=== PATIENT | female | born 1995 | race African-American/Black ===

== ENCOUNTER 2020-04-19 16:50 | Inpatient (IN) | payer MEDICAID, SELFPAY ==
[~2020-04-19] VITALS: Ht 175.3 cm; Wt 95.3 kg
[2020-04-19] MEDS ORDERED: PRETAB PO (17:46)
[2020-04-19] MEDS ORDERED: MORPHINE SULFATE 5 MG/ML VIAL IVP PRN (17:50)
[2020-04-19] MEDS ORDERED: LACTATED RINGERS 1,000 ML IV SCH (17:50)
[2020-04-19] MEDS ORDERED: OXYTOCIN 20 UNITS in LACTATED RINGERS 1,000 ML IV SCH (17:50)
[2020-04-19] MEDS ORDERED: METHYLERGONOVINE 0.2 MG/ML AMP IM PRN (17:50)
[2020-04-19] MEDS ORDERED: ONDANSETRON 4 MG/2 ML VIAL IVP PRN (17:50)
[2020-04-19] MEDS ORDERED: CARBOPROST 250 MCG/ML AMP IM PRN (17:50)
[2020-04-19 18:18] LABS: APPEARANCE,URINE CLEAR (CLEAR); BILIRUBIN,URINE NEGATIVE (NEGATIVE); BLOOD, URINE NEGATIVE (NEGATIVE); COLOR,URINE YELLOW (YELLOW); LEUKOCYTE ESTERASE ,URINE TRACE (NEGATIVE); NITRITE, URINE NEGATIVE (NEGATIVE); UGLUCOSE NEGATIVE (NEGATIVE)
[2020-04-19 18:37] LABS: BASOPHILS # (AUTO) 0.1 K/uL (0.00-0.22); BASOPHILS % (AUTO) 0.6 % (0.0-2.0); EOSINOPHILS # (AUTO) 0.1 K/uL (0-0.4); EOSINOPHILS % (AUTO) 0.6 % (0.0-4.0); HEMATOCRIT 37.2 % (36-48); LYMPHOCYTES # (AUTO) 1.5 K/uL (2.5-16.5); LYMPHOCYTES % (AUTO) 13.1 % (20.5-51.1); MEAN CORPUSCULAR HEMOGLOBIN 23 pg (27-31); MEAN CORPUSCULAR HGB CONC 32 g/dL (33-37); MONOCYTES # (AUTO) 0.6 K/uL (0.8-1.0); MONOCYTES % (AUTO) 5.6 % (1.7-9.3); NEUTROPHILS # (AUTO) 8.9 K/uL (1.8-7.7); NEUTROPHILS % (AUTO) 80.1 % (42.2-75.2); PLATELET COUNT (AUTO) 303 K/uL (140-450); RED BLOOD CELL COUNT(AUTO) 5.17 MIL/uL (4.20-5.40); RED CELL DISTRIBUTION WIDTH 15.7 % (11.6-13.7); WHITE BLOOD COUNT (AUTO) 11.1 K/uL (4.8-10.8)
[2020-04-19 18:42] LABS: BARBITURATE, URINE NEGATIVE ng/ml (NEG <=200); BENZODIAZEPINE, URINE NEGATIVE ng/mL (NEG <=200); CANNABINOID, URINE NEGATIVE ng/mL (NEG <=50); COCAINE, URINE NEGATIVE ng/mL (NEG <=300); OPIATE, URINE NEGATIVE ng/mL (NEG <=2000); PHENCYCLIDINE SCREEN,URINE NEGATIVE ng/mL (NEG <=25)
[2020-04-19 18:49] LABS: RBC,URINE 0-5 /HPF (0-5)
[2020-04-19 19:04] LABS: ALBUMIN 2.9 g/dL (3.4-5.0); ANION GAP 14.7 (8-16); CARBON DIOXIDE 22.8 mmol/L (21-32); CREATININE 0.7 mg/dL (0.6-1.3); POTASSIUM 3.5 mmol/L (3.5-5.1); TOTAL BILIRUBIN 0.2 mg/dL (0.0-1.0)
[2020-04-19] MEDS ORDERED: MORPHINE SULFATE 10 MG/ML VIAL ONE (20:13)
[2020-04-19 20:19] VITALS: BP 110/70
[2020-04-19] MEDS ORDERED: ROPIVACAINE 0.2%/NS PREMIX 200 ML EPI ONE (22:31)
[2020-04-20] MEDS ORDERED: OXYTOCIN 20 UNITS/LR PREMIX 1,000 ML IV ONE (05:18)
[2020-04-20] MEDS ORDERED: LEVOTHYROXINE 0.025 MG TAB PO SCH (06:30)
--- NOTE | 2020-04-20 09:30 | NUR ---
PATIENT HAS BEEN SCREENED AND CATEGORIZED LOW NUTRITION RISK. PATIENT WILL BE SEEN WITHIN 7 DAYS OF ADMISSION. 04/26/[address]
[2020-04-20] MEDS ORDERED: SIMETHICONE 80 MG TAB.CHEW PO PRN (18:10)
[2020-04-20] MEDS ORDERED: METHYLERGONOVINE 0.2 MG/ML AMP IM PRN (18:10)
[2020-04-20] MEDS ORDERED: bisacodyL 5 MG TABEC PO PRN (18:10)
[2020-04-20] MEDS ORDERED: MEASLES, MUMPS, AND RUBELLA 1 VIAL SQVAC PRN (18:10)
[2020-04-20] MEDS ORDERED: IBUPROFEN 800 MG TAB PO PRN (18:10)
[2020-04-20] MEDS ORDERED: OXYTOCIN 10 UNITS/ML VIAL IM PRN (18:10)
[2020-04-20] MEDS ORDERED: DOCUSATE SODIUM 100 MG GELCAP PO PRN (18:10)
[2020-04-20] MEDS ORDERED: BENZOCAINE/MENTHOL 20%-0.5% 60 GM CAN TP PRN (18:10)
[2020-04-20] MEDS ORDERED: IBUPROFEN 600 MG TAB PO PRN (18:10)
[2020-04-20] MEDS ORDERED: METHYLERGONOVINE 0.2 MG TAB PO PRN (18:10)
[2020-04-21] MEDS ORDERED: MULTIVIT/MIN/CA/FE/FA 1 TAB PO SCH (09:00)
[2020-04-21] MEDS ORDERED: LEVO (20:57)
[2020-04-21] MEDS ORDERED: LEVO0.0211 PO (21:06)
== END 2020-04-21 22:20 | disposition home or self-care (01) | DRG 560 ==
LOC: MFCC 16:50
PROVIDERS: ADMIT Obstetrics & Gynecology; ATTEND Obstetrics & Gynecology
PROC: 10E0XZZ Delivery of Products of Conception, External Approach (ICD-10-PCS; principal; 2020-04-20)
PROC: 3E0R3BZ Introduction of Anesthetic Agent into Spinal Canal, Percutaneous Approach (ICD-10-PCS; 2020-04-20)
PROC: 00HU33Z Insertion of Infusion Device into Spinal Canal, Percutaneous Approach (ICD-10-PCS; 2020-04-20)
PROC: 10907ZC Drainage of Amniotic Fluid, Therapeutic from Products of Conception, Via Natural or Artificial Opening (ICD-10-PCS; 2020-04-20)
DX: O60.23X0 Term delivery with preterm labor, third trimester, not applicable or unspecified (principal); O99.284 Endocrine, nutritional and metabolic diseases complicating childbirth; Z37.0 Single live birth; Z3A.38 38 weeks gestation of pregnancy; Z20.828 Contact with and (suspected) exposure to other viral communicable diseases; E03.9 Hypothyroidism, unspecified
CPT/HCPCS: 36415; 51702; 80053; 80305; 81001; 85025; 86592; 86886; 86900; 86901; 87086; J2270; J2405; J2590; J2795